=== PATIENT | male | born 1970 | race Caucasian/White ===

== ENCOUNTER 2020-11-22 02:46 | Emergency (ER) | payer OTHER ==
[~2020-11-22] VITALS: Ht 182.9 cm; Wt 113.4 kg
[~2020-11-22 02:46] MED LIST: ASPIRIN EC325 MG PO
[2020-11-22] MEDS ORDERED: OMEPRAZOLE20 MG PO (03:47)
--- NOTE | 2020-11-22 04:39 | EKG ---
[facility] [address] [facility] [place] [address] Signed Normal sinus rhythm Normal ECG No previous ECGs available Confirmed by GEOFF HARVEY MD ([id number]) on 11/22/2020 4:39:49 AM Electronically Signed By: GEOFF HARVEY MD 11/22/20 0439 PATIENT NAME: SUSU BOGGS NELIA Electrocardiogram DATE OF : 72 PHYSICIAN: GEOFF HARVEY MD REPORT #: [id number] REPORT IS CONFIDENTIAL AND NOT TO BE RELEASED WITHOUT AUTHORIZATION
== END 2020-11-22 04:16 | disposition home or self-care (01) ==
LOC: ED 02:46
DX: R07.89 Other chest pain (principal); I25.2 Old myocardial infarction
CPT/HCPCS: 71045; 80053; 83735; 84484; 85025; 93005; 93010; 96374; 96375; 99285-25; J2270; J2405

== ENCOUNTER 2024-10-22 05:49 | Emergency (ER) | payer OTHER ==
[~2024-10-22] VITALS: Ht 182.9 cm; Wt 113.9 kg
[~2024-10-22 05:49] MED LIST changes: +OMEPRAZOLE20 MG PO
[2024-10-22] MEDS ORDERED: PRILOSEC OTC20 MG PO (05:57)
[2024-10-22] MEDS ORDERED: ASPIRIN 81 MG CHEW PO ONE (06:00)
[2024-10-22 06:05] LABS: BASOPHILS 0.7 % (0-2); EOSINOPHILS 2.1 % (0-6); HEMATOCRIT 47.7 % (35.0-50.0); LYMPHOCYTES 26.3 % (24-44); MCH 30.1 (27-36); MCHC 35.6 g/dl (30-36); MCV 84.6 fl (81-99); MONOCYTES 8.2 % (0-12); NEUTROPHILS 62.7 % (39-80); PLATELET COUNT 375 K/uL (140-440); RBC 5.64 M/ul (4.3-5.7); RDW 12.9 (10.5-15.0)
[2024-10-22] MEDS ORDERED: NITROGLYCERIN PACKET TOP ONE (06:15)
[2024-10-22 06:26] LABS: ALBUMIN 3.9 g/dL (3.4-5.0); ALBUMIN/GLOBULIN RATIO 0.98 (1.1-2.4); ANION GAP 13.9 (7-21); BILIRUBIN, TOTAL 0.7 mg/dL (0.2-1.0); BUN/CREATININE RATIO 17.35 (6.0-28.6); CALCIUM 9.5 mg/dL (8.5-10.1); CREATININE, SERUM 1.21 mg/dL (0.70-1.30); MAGNESIUM 2.1 mg/dL (1.8-2.4); POTASSIUM 3.9 mmol/L (3.5-5.1); PROTEIN, TOTAL 7.9 g/dL (6.4-8.2)
[2024-10-22] MEDS ORDERED: CYCLOBENZAPRINE10 MG PO (07:28)
[2024-10-22 07:58] VITALS: BP 145/93
--- NOTE | 2024-10-22 17:33 | EKG ---
[facility] [address] [facility] [place] [address] Signed Normal sinus rhythm Left axis deviation Abnormal ECG When compared with ECG of 22-NOV-2020 02:53, No significant change was found Confirmed by Magda Brown MD ([id number]) on 10/22/2024 5:33:37 PM Electronically Signed By: MAGDA BROWN MD 10/22/24 173 PATIENT NAME: SUSU BOGGS Electrocardiogram DATE OF : 72 PHYSICIAN: MAGDA BROWN MD REPORT #: [id number] REPORT IS CONFIDENTIAL AND NOT TO BE RELEASED WITHOUT AUTHORIZATION
== END 2024-10-22 07:58 | disposition home or self-care (01) ==
LOC: ED 05:49
PROVIDERS: Family Medicine
DX: R07.89 Other chest pain (principal); I25.2 Old myocardial infarction; Z79.899 Other long term (current) drug therapy
CPT/HCPCS: 36415; 71045; 80053; 83735; 84484; 85025; 93005; 93010; 99285-25; A9270

== ENCOUNTER 2025-06-15 04:34 | Emergency (ER) | payer OTHER ==
[~2025-06-15] VITALS: Ht 182.9 cm; Wt 112.0 kg
[~2025-06-15 04:34] MED LIST changes: +CYCLOBENZAPRINE10 MG PO; +PRILOSEC OTC20 MG PO
[2025-06-15] MEDS ORDERED: IBUPROFEN600 MG PO (04:44)
[2025-06-15] MEDS ORDERED: [UNRECOGNIZED DRUG - OTHER] PO (04:44)
[2025-06-15] MEDS ORDERED: ASPIRIN 81 MG CHEW PO ONE (04:45)
[2025-06-15] MEDS ORDERED: NITROGLYCERIN 0.4 MG SUBL SL PRN (04:45)
[2025-06-15] MEDS ORDERED: FAMOTIDINE 20 MG/ 2 ML VIAL IV ONE (04:45)
[2025-06-15 04:48] LABS: BASOPHILS 0.5 % (0.2-1.2); EOSINOPHILS 2.5 % (0.8-7.0); LYMPHOCYTES 42.7 % (21.8-53.1); MCH 28.4 PG (25.7-32.2); MCHC 33.5 g/dL (32.3-36.5); MCV 84.8 fL (79.0-92.2); MONOCYTES 7.1 % (5.3-12.2); NEUTROPHILS 46.9 % (34.0-67.9); RBC 5.91 M/uL (4.63-6.08)
[2025-06-15 05:04] LABS: CHOLESTEROL/HDL RATIO 4.3; LDL CHOLESTEROL 141.0 mg/dL (< 129); NON-HDL CHOLESTEROL 178.0; VLDL CHOLESTEROL 37.0
[2025-06-15 05:08] LABS: ALT (SGPT) 31.0 U/L (14-59); AST (SGOT) 16.0 U/L (15-37); GLOMERULAR FILTRATION RATE,EST 69.0 mL/min (>60); PROTEIN, TOTAL 8.1 g/dL (6.4-8.2); UREA NITROGEN 19.0 mg/dL (7-18)
[2025-06-15] MEDS ORDERED: METHYLPREDNISOLO4 M1 PO (06:18)
[2025-06-15] MEDS ORDERED: METOPROLOL TARTRATE 5 MG/5 ML VIAL IV ONE (07:00)
[2025-06-15] MEDS ORDERED: ATORVASTATIN 40 MG TAB PO ONE (07:00)
[2025-06-15 07:09] LABS: BLOOD/HGB, URINE NEGATIVE (Negative); KETONE, URINE NEGATIVE (Negative); LEUK ESTERASE, URINE NEGATIVE (negative); NITRITE, URINE NEGATIVE (negative)
[2025-06-15 07:28] LABS: AMPHETAMINES, URINE NEGATIVE (NEGATIVE); BARBITURATES, URINE NEGATIVE (NEGATIVE); BENZODIAZEPINE, URINE NEGATIVE (NEGATIVE); CANNABINOID, URINE NEGATIVE (NEGATIVE); COCAINE, URINE NEGATIVE (NEGATIVE); ECSTASY, URINE NEGATIVE (NEGATIVE); FENTANYL, URINE NEGATIVE (NEGATIVE); METHADONE, URINE NEGATIVE (NEGATIVE); OPIATES, URINE NEGATIVE (NEGATIVE); OXYCODONE, URINE NEGATIVE (NEGATIVE); PHENCYCLIDINE, URINE NEGATIVE (NEGATIVE)
[2025-06-15 08:46] VITALS: BP 161/98
--- NOTE | 2025-06-15 13:47 | EKG ---
[facility] [address] [facility] [place] [address] Signed Normal sinus rhythm Normal ECG When compared with ECG of 22-OCT-2024 05:51, No significant change was found Confirmed by Felicia Merchant DO ([id number]) on 06/15/2025 1:47:03 PM Electronically Signed By: FELICIA MERCHANT DO 06/15/25 1347 PATIENT NAME: SUSU BOGGS Electrocardiogram DATE OF : 72 PHYSICIAN: FELICIA MERCHANT DO REPORT #: [id number] REPORT IS CONFIDENTIAL AND NOT TO BE RELEASED WITHOUT AUTHORIZATION
--- NOTE | 2025-06-15 13:47 | EKG ---
[facility] [address] [facility] [place] [address] Signed Normal sinus rhythm Nonspecific T wave abnormality Abnormal ECG When compared with ECG of 15-JUN-2025 04:37, (Unconfirmed) Nonspecific T wave abnormality now evident in Lateral leads Confirmed by Felicia Merchant DO ([id number]) on 06/15/2025 1:47:06 PM Electronically Signed By: FELICIA MERCHANT DO 06/15/25 1347 PATIENT NAME: SUSU BOGGS Electrocardiogram DATE OF : 72 PHYSICIAN: FELICIA MERCHANT DO REPORT #: [id number] REPORT IS CONFIDENTIAL AND NOT TO BE RELEASED WITHOUT AUTHORIZATION
== END 2025-06-15 08:40 | disposition short-term general hospital (02) ==
LOC: ED 04:34
PROVIDERS: Internal Medicine
DX: I10 Essential (primary) hypertension (principal); I21.A1 Myocardial infarction type 2; I25.2 Old myocardial infarction; Z79.899 Other long term (current) drug therapy
CPT/HCPCS: 36415; 71045; 80053; 80061; 80307; 81003; 83036; 83690; 83735; 84484; 85025; 93005; 93010; 96374; 96375; 99285-25; A9270